=== PATIENT | male | born 1935 | race Caucasian/White ===

== ENCOUNTER 2016-05-31 04:12 | Emergency (ER) | payer MEDICARE, OTHER ==
[~2016-05-31] VITALS: Ht 165.1 cm; Wt 68.0 kg
--- NOTE | 2016-05-31 04:12 | NUR ---
PT BIB RA WITH A C/O SOB. PT REC'D A BREATHING TX IN THE FIELD. PT IS SPEAKING IN COMPLETE SENTENCES. 20G IV IN LEFT HAND IT ANALYST. IV FLUSHING WELL.
[2016-05-31] MEDS ORDERED: methylPREDNISolone SOD SUCC 125 MG/2ML VIAL ONE (04:19)
[2016-05-31] MEDS ORDERED: ALBUTEROL FS 2.5 MG/3 ML VIAL.NEB ONE (04:23)
[2016-05-31] MEDS ORDERED: IPRATROPIUM NEB FS 0.5 MG/2.5 ML AMPUL.NEB ONE (04:24)
[2016-05-31] MEDS: ALBUTEROL FS 2.5 MG/0.5 ML VIAL.NEB NEB ONE (04:25)
[2016-05-31] MEDS: IPRATROPIUM NEB FS 0.5 MG/2.5 ML AMPUL.NEB NEB ONE (04:25)
[2016-05-31] MEDS: methylPREDNISolone SOD SUCC 125 MG/2ML VIAL IV ONE (04:29)
--- NOTE | 2016-05-31 04:30 | NUR ---
RT AT THE BEDSIDE. PT IS ON A BREATHING TX.
--- NOTE | 2016-05-31 04:43 | NUR ---
BREATHING TX FINISHED.
[2016-05-31] MEDS ORDERED: DEXAMETHASONE SOD PHOSPHATE 10 MG/ML VIAL ONE (04:47)
--- NOTE | 2016-05-31 04:51 | NUR ---
DR. FORDE IS AT THE BEDSIDE SPEAKING TO THE PT.
[2016-05-31] MEDS: DEXAMETHASONE SOD PHOSPHATE 10 MG/ML VIAL IV ONE (04:52)
--- NOTE | 2016-05-31 05:10 | NUR ---
IV removed. Catheter intact and site benign. Pressure and 4x4 applied to site. No bleeding noted.Patient discharged to home in stable condition. Written and verbal after care instructions given. Patient verbalizes understanding of instruction AND RX. PT'S SON ARRIVED AND IS DRIVING PT HOME. VSS.
[2016-05-31 05:34] VITALS: BP 159/89
== END 2016-05-31 05:10 | disposition home or self-care (01) ==
LOC: ER 04:15
DX: J20.9 Acute bronchitis, unspecified (principal); J45.909 Unspecified asthma, uncomplicated; I10 Essential (primary) hypertension
CPT/HCPCS: 71010-TC; A4606; J1100; J2930; Z7610

== ENCOUNTER 2019-03-20 07:42 | Inpatient (IN) | payer MEDICARE, OTHER ==
[~2019-03-20] VITALS: Ht 165.1 cm; Wt 68.0 kg
--- NOTE | 2019-03-20 07:43 | NUR ---
PHOEBE 102 FROM HOME, C/O SOB AND COUGH, 94% ON RA, 100% ON 2LPM VIA NC. Hx OF ASTHMA. TO ER BED 10, HOOKED TO MONITOR, CHANGED TO HOSP GOWN, WARM BLANKET PROVIDED, AWAITING MD PIMENTEL
--- NOTE | 2019-03-20 07:48 | NUR ---
DR NOVAK AT BEDSIDE
[2019-03-20] MEDS ORDERED: IPRATROPIUM NEB FS 0.5 MG/2.5 ML AMPUL.NEB NEB ONE (08:00)
[2019-03-20] MEDS ORDERED: ALBUTEROL FS 2.5 MG/3 ML VIAL.NEB CONTNEB ONE (08:00)
[2019-03-20] MEDS ORDERED: IPRATROPIUM NEB FS 0.5 MG/2.5 ML AMPUL.NEB ONE (08:12)
[2019-03-20] MEDS ORDERED: ALBUTEROL FS 2.5 MG/3 ML VIAL.NEB ONE (08:12)
[2019-03-20 08:16] LABS: BASOPHILS % (AUTO) 0.3 % (0.0-2.0); EOSINOPHILS % (AUTO) 0.2 % (0.0-6.0); HEMATOCRIT 38 % (39-51); HEMOGLOBIN 12.7 g/dL (13.5-17.5); LYMPHOCYTES # (AUTO) 0.7 /CMM (0.8-4.8); LYMPHOCYTES % (AUTO) 8.8 % (20.0-44.0); MEAN CORPUSCULAR HGB CONC 34 g/dl (31.0-36.0); MEAN CORPUSCULAR VOLUME 93 fL (80-96); MONOCYTES # (AUTO) 0.6 /CMM (0.1-1.30); MONOCYTES % (AUTO) 7.5 % (2.0-12.0); NEUTROPHILS # (AUTO) 6.7 /CMM (1.8-8.9); NEUTROPHILS % (AUTO) 83.2 % (43.0-81.0); PLATELET COUNT (AUTO) 277 /CMM (150-450); RED BLOOD CELL COUNT(AUTO) 4.06 MIL/uL (4.5-6.0); WHITE BLOOD COUNT (AUTO) 8.1 K/uL (4.3-11.0)
[2019-03-20 08:24] LABS: CALCIUM, SERUM 8.9 mg/dL (8.5-10.1); POTASSIUM 4.2 mmol/L (3.5-5.1)
--- NOTE | 2019-03-20 08:24 | NUR ---
ONGOING BREATHING TX
--- NOTE | 2019-03-20 08:30 | NUR ---
CALLED NURSING SUP FOR TELE BED.
[2019-03-20 08:36] LABS: ALBUMIN 3.2 g/dL (3.4-5.0); BILIRUBIN,DIRECT 0.2 mg/dL (0.0-0.2); BILIRUBIN,TOTAL 0.9 mg/dL (0.2-1.0)
[2019-03-20] MEDS ORDERED: ASPIRIN 81 MG TAB.CHEW PO ONE (09:00)
[2019-03-20] MEDS ORDERED: FUROSEMIDE 40 MG/4 ML VIAL IV ONE (09:00)
[2019-03-20] MEDS ORDERED: FUROSEMIDE 40 MG/4 ML VIAL ONE (09:05)
[2019-03-20] MEDS ORDERED: ASPIRIN 81 MG TAB.CHEW ONE (09:06)
[2019-03-20] MEDS ORDERED: TRAZ-252 PO (09:16)
[2019-03-20] MEDS ORDERED: BUSP10TA35 PO (09:16)
[2019-03-20] MEDS ORDERED: DIGO125T PO (09:16)
[2019-03-20] MEDS ORDERED: ASPI-1152 PO (09:16)
[2019-03-20] MEDS ORDERED: LOSA50TA39 PO (09:16)
[2019-03-20] MEDS ORDERED: CHOL200059 PO (09:16)
[2019-03-20] MEDS ORDERED: TAMS-12 PO (09:16)
[2019-03-20] MEDS ORDERED: ARIP2TAB19 PO (09:16)
[2019-03-20] MEDS ORDERED: ESOM40CA52 PO (09:16)
[2019-03-20] MEDS ORDERED: FLUT1BLS IH (09:16)
[2019-03-20] MEDS ORDERED: ATOR10TA PO (09:16)
[2019-03-20] MEDS ORDERED: HYDR12.55 PO (09:16)
[2019-03-20] MEDS ORDERED: MEMA10TA56 PO (09:16)
[2019-03-20] MEDS ORDERED: MONT10TA22 PO (09:16)
[2019-03-20] MEDS ORDERED: ISOS30TA6 PO (09:16)
[2019-03-20] MEDS ORDERED: MECL-159 PO (09:16)
--- NOTE | 2019-03-20 09:20 | NUR ---
NURSING SUP GAVE TELE BED 327-2.
[2019-03-20] MEDS ORDERED: Z GUARD REMEDY 2 OZ OINT TP PRN (09:30)
[2019-03-20] MEDS ORDERED: IPRATROPIUM NEB FS 0.5 MG/2.5 ML AMPUL.NEB NEB PRN (09:30)
[2019-03-20] MEDS ORDERED: MAG HYDROX/AL HYDROX/SIMETH 30 ML UDC PO PRN (09:30)
[2019-03-20] MEDS ORDERED: HYDROCODONE/APAP 5/325MG 1 EACH TABLET PO PRN (09:30)
[2019-03-20] MEDS ORDERED: ONDANSETRON HCL/PF 4 MG/2 ML VIAL IVP PRN (09:30)
[2019-03-20] MEDS ORDERED: NITROGLYCERIN 0.4 MG/TAB BOTTLE SL ONE (09:30)
[2019-03-20] MEDS ORDERED: MORPHINE SULFATE INJ 2 MG/ML DISP.SYRIN IV PRN (09:30)
[2019-03-20] MEDS ORDERED: ACETAMINOPHEN 325 MG TABLET PO PRN (09:30)
[2019-03-20] MEDS ORDERED: ALBUTEROL FS 2.5 MG/0.5 ML VIAL.NEB NEB PRN (09:30)
--- NOTE | 2019-03-20 09:45 | NUR ---
REPORT GIVEN TO TAMI OF TELE UNIT
[2019-03-20 10:00] VITALS: BP 134/80
[2019-03-20] MEDS ORDERED: MECLIZINE HCL 25 MG TABLET PO PRN (10:00)
[2019-03-20] MEDS ORDERED: TRAZODONE 50 MG TABLET PO PRN (10:00)
--- NOTE | 2019-03-20 10:00 | NUR ---
EMPLOYER RELATIONS REPRESENTATIVEDIRECTOR PRESALES NOTE PATIENT ARRIVED BY JESSICA. PATIENT IS AMBULATORY TO BED. PATIENT IN NO ACUTE DISTRESS. NO SOB NOTED. PATIENT BREATHING IS EVEN AND UNLABORED. PATIENT BREATHING ON OXYGEN NC AT 2L. PATIENT ON CARDIAC MONITORING READING SINUS RHYTHM HR 88. PATIENT VITAL SIGNS WNL. PATIENT BED IS LOCKED AND IN LOWEST POSITION. CALL LIGHT WITHIN REACH. YUE ARGUELLO MADE AWARE OF PATIENT ARRIVAL. WILL CONTINUE TO MONITOR.
[2019-03-20] MEDS: CARVEDILOL 3.125 MG TABLET PO SCH ×2 (10:32→21:04)
[2019-03-20] MEDS: ENOXAPARIN SODIUM 60 MG/0.6 ML DISP.SYRIN SQ SCH ×2 (10:32→21:03)
[2019-03-20] MEDS: FUROSEMIDE 40 MG/4 ML VIAL IV SCH ×3 (10:33→17:27)
--- NOTE | 2019-03-20 12:05 | NUR ---
WASTE TRANSPORTATION TECHNICIAN NOTE TROPONIN LEVEL REPORTED BY LAB WAS 0.735. REPORTED RESULTS TO YUE ARGUELLO. YUE MADE AWARE. NO NEW ORDERS AT THIS TIME. PATIENT IN NO ACUTE DISTRESS. WILL CONTINUE TO MONITOR.
[2019-03-20] MEDS: DIGOXIN 0.125 MG TABLET PO SCH (12:19)
[2019-03-20] MEDS: FLUTICASONE/VILANTEROL 1 EACH BLST.W.DEV IH SCH (12:19)
[2019-03-20 16:00] VITALS: BP 126/76
[2019-03-20] MEDS ORDERED: FLUTICASONE/VILANTEROL 1 EACH BLST.W.DEV IH SCH ×2 (17:00)
[2019-03-20] MEDS: MONTELUKAST SODIUM (10MG) 10 MG TABLET PO SCH (17:28)
[2019-03-20] MEDS: ATORVASTATIN 10 MG TABLET PO SCH (17:28)
[2019-03-20] MEDS: TAMSULOSIN 0.4 MG CAP.SR.24H PO SCH (17:28)
--- NOTE | 2019-03-20 17:57 | NUR ---
ACTUARIAL ASSOCIATE NOTES CALL FROM LAB REGARDING PATIENT TROPONIN LAB REPORTED AT 0.921. REPORTED RESULTS TO YUE ARGUELLO. NO NEW ORDERS AT THIS TIME. WILL CONTINUE TO MONITOR.
--- NOTE | 2019-03-20 18:29 | NUR ---
ARMOR OFFICER CLOSING NOTE PATIENT IN BED RESTING COMFORTABLY. PATIENT IN NO ACUTE DISTRESS. NO SOB NOTED. PATIENT BREATHING IS EVEN AND UNLABORED. PATIENT ON CARDIAC MONITORING READING SINUS RHYTHM HR 64. PATIENT STATES NO PAIN AT THIS TIME. PATIENT KEPT CLEAN, DRY AND COMFORTABLE THROUGHOUT SHIFT. PATIENT BED IS LOCKED AND IN LOWEST POSITION. SAFETY PRECAUTIONS IN PLACE. CALL LIGHT WITHIN REACH. WILL ENDORSE CARE TO PM SHIFT FOR VANESSA.
[2019-03-20 20:00] VITALS: BP 132/98
--- NOTE | 2019-03-20 20:12 | NUR ---
Recievd alert and orientated smiling. Ambulating in the hallway. Noted he is [place]. Offered snack but states he has food at the bedside. moving all extremities
[2019-03-20 20:42] VITALS: BP 139/98
[2019-03-21] VITALS: BP 139/57
[2019-03-21] MEDS: ZOLPIDEM TARTRATE 5 MG TABLET PO PRN ×2 (00:03→23:37)
[2019-03-21 04:00] VITALS: BP_SYST 135; BP_SYST 139; BP_DIAS 57; BP_DIAS 67
--- NOTE | 2019-03-21 06:42 | NUR ---
Ending Notes: ambulated the hallway freq. before settling for sleep. He commented he can't go to sleeo. glenna Dugan given as ordered for insomnia and effective. On the tele monitor SR with occ. HILLS. no c/o pain, gait steady, no SOB, resp given.
[2019-03-21 07:31] LABS: BASOPHILS % (AUTO) 0.3 % (0.0-2.0); EOSINOPHILS % (AUTO) 0.7 % (0.0-6.0); HEMATOCRIT 39 % (39-51); LYMPHOCYTES # (AUTO) 0.9 /CMM (0.8-4.8); LYMPHOCYTES % (AUTO) 12.7 % (20.0-44.0); MEAN CORPUSCULAR HGB CONC 34 g/dl (31.0-36.0); MEAN CORPUSCULAR VOLUME 91 fL (80-96); MONOCYTES # (AUTO) 0.7 /CMM (0.1-1.30); MONOCYTES % (AUTO) 9.7 % (2.0-12.0); NEUTROPHILS # (AUTO) 5.3 /CMM (1.8-8.9); NEUTROPHILS % (AUTO) 76.6 % (43.0-81.0); PLATELET COUNT (AUTO) 277 /CMM (150-450); RED BLOOD CELL COUNT(AUTO) 4.27 MIL/uL (4.5-6.0); WHITE BLOOD COUNT (AUTO) 6.9 K/uL (4.3-11.0)
[2019-03-21 07:53] LABS: CALCIUM, SERUM 8.8 mg/dL (8.5-10.1); CREATININE 1.1 mg/dL (0.6-1.3); PHOSPHORUS 3.5 mg/dL (2.5-4.9); POTASSIUM 3.5 mmol/L (3.5-5.1)
[2019-03-21 08:00] VITALS: BP 133/65
[2019-03-21 08:35] LABS: THYROID STIMULATING HORMONE 1.353 uIU/mL (0.358-3.74)
--- NOTE | 2019-03-21 08:54 | NUR ---
TELE/RN NOTE DR COATS IS AWARE OF TROPONIN LEVEL OF 0.578 AND NO NEW ORDERS PER MD.
[2019-03-21] MEDS ORDERED: ASPIRIN 325 MG TABLET PO SCH (09:00)
[2019-03-21] MEDS ORDERED: busPIRone HCL 10 MG TABLET PO SCH (09:00)
[2019-03-21] MEDS: PANTOPRAZOLE 40 MG TABLET.DR PO SCH (09:04)
[2019-03-21] MEDS: ARIPIPRAZOLE 2 MG TABLET PO SCH (09:04)
[2019-03-21] MEDS: ISOSORBIDE MONONITRATE (30MG) 30 MG TAB.SR.24H PO SCH (09:05)
[2019-03-21] MEDS: CHOLECALCIFEROL 1,000 UNIT TABLET (VIT D3) PO SCH (09:05)
[2019-03-21] MEDS: MEMANTINE HCL 5 MG TABLET PO SCH (09:06)
[2019-03-21] MEDS: busPIRone 5 MG TABLET PO SCH (09:06)
[2019-03-21] MEDS: ASPIRIN EC 81 MG TABLET.DR PO SCH (09:06)
[2019-03-21] MEDS: LOSARTAN POTASSIUM 50 MG TABLET PO SCH (09:07)
[2019-03-21] MEDS: CARVEDILOL 3.125 MG TABLET PO SCH ×2 (09:07→21:11)
[2019-03-21] MEDS: HYDROCHLOROTHIAZIDE 25 MG TABLET PO SCH (09:07)
[2019-03-21] MEDS: FLUTICASONE/VILANTEROL 1 EACH BLST.W.DEV IH SCH (09:14)
[2019-03-21] MEDS: ENOXAPARIN SODIUM 60 MG/0.6 ML DISP.SYRIN SQ SCH ×2 (09:15→21:00)
--- NOTE | 2019-03-21 11:02 | NUR ---
TELE/RN NOTE DR ARGUELLO IS AWARE OF TROPONIN LEVEL OF 0.578 AND NO NEW ORDERS PER MD.
[2019-03-21] MEDS: DIGOXIN 0.125 MG TABLET PO SCH (12:47)
[2019-03-21 16:00] VITALS: BP 116/68
[2019-03-21] MEDS: MONTELUKAST SODIUM (10MG) 10 MG TABLET PO SCH (17:56)
[2019-03-21] MEDS: TAMSULOSIN 0.4 MG CAP.SR.24H PO SCH (18:00)
[2019-03-21] MEDS: ATORVASTATIN 10 MG TABLET PO SCH (18:00)
--- NOTE | 2019-03-21 18:49 | NUR ---
MS/RN NOTE THE PATIENT IS ALERT AND ORIENTED X4. DENIES PAIN. RECEIVING OXYGEN AT 3L/MIN VIA NASAL CANNULA AND SATURATION IS AT 96%. DENIES SOB. RESPIRATION REGULAR AND UNLABORED. THE PATIENT IN NO APPARENT DISTRESS. LAC G 20 PATENT AND SALINE LOCKED. BED LOW AND LOCKED. SIDE RAILS UP X2. CALL LIGHT WITHIN REACH. WILL ENDORSE TO FLYING INSTRUCTOR.
--- NOTE | 2019-03-21 19:30 | NUR ---
MS RN OPENING NOTES PATIENT SLEEPING IN BED, EASY TO AWAKEN. A/OX4. ON 3L NC. PATIENT DENIES SOB AND PAIN AT THIS TIME. IV PRESENT ON LEFT AC, SIZE 20, INTACT & PATENT, HEP LOCKED. BED LOCKED, SIDE RAILS X2, CALL LIGHT WITHIN REACH. WILL CONTINUE TO MONITOR.
[2019-03-21 20:00] VITALS: BP_SYST 110; BP_SYST 120; BP_DIAS 62; BP_DIAS 65
--- NOTE | 2019-03-21 23:11 | NUR ---
MS RN NOTES PATIENT COMPLAINING OF INSOMNIA. PER PATIENT'S REQUEST, ADMINISTERED PRN AMBIEN 5MG. VITAL SIGNS- BP: 127/71 HR: 65 RR: 20 SPO2: 97 ON 3L NC. BED LOCKED, ALARM ON, SIDE RAILS X2, CALL LIGHT WITHIN REACH. WILL CONTINUE TO MONITOR.
[2019-03-22 06:38] LABS: CALCIUM, SERUM 8.8 mg/dL (8.5-10.1); CREATININE 1.1 mg/dL (0.6-1.3); POTASSIUM 3.6 mmol/L (3.5-5.1)
[2019-03-22 06:43] LABS: BASOPHILS % (AUTO) 0.2 % (0.0-2.0); EOSINOPHILS % (AUTO) 0.7 % (0.0-6.0); HEMATOCRIT 38 % (39-51); HEMOGLOBIN 12.7 g/dL (13.5-17.5); LYMPHOCYTES % (AUTO) 14.9 % (20.0-44.0); MEAN CORPUSCULAR HGB CONC 33 g/dl (31.0-36.0); MEAN CORPUSCULAR VOLUME 92 fL (80-96); MONOCYTES # (AUTO) 0.7 /CMM (0.1-1.30); MONOCYTES % (AUTO) 10.6 % (2.0-12.0); NEUTROPHILS # (AUTO) 5.1 /CMM (1.8-8.9); NEUTROPHILS % (AUTO) 73.6 % (43.0-81.0); PLATELET COUNT (AUTO) 274 /CMM (150-450); RED BLOOD CELL COUNT(AUTO) 4.14 MIL/uL (4.5-6.0); WHITE BLOOD COUNT (AUTO) 6.9 K/uL (4.3-11.0)
--- NOTE | 2019-03-22 07:40 | NUR ---
MS RN CLOSING NOTES PATIENT AWAKE IN BED. A/O X4. ON 3L NC. NO COMPLAINTS OF SOB OR PAIN AT THIS TIME. IV PRESENT ON LEFT AC, SIZE 20, INTACT & PATENT, HEP LOCKED. BED LOCKED, SIDE RAILS X2, SEMI-COTTO'S POSITION, CALL LIGHT WITHIN REACH. WILL ENDORSE TO DAY SHIFT NURSE TO FOLLOW PLAN OF CARE.
[2019-03-22 08:00] VITALS: BP 129/72
--- NOTE | 2019-03-22 08:00 | NUR ---
MS/RN OPENING NOTES RECEIVED PATIENT AWAKE IN BED. A/O X4. ON 3L NC. NO COMPLAINTS OF SOB OR PAIN AT THIS TIME. IV PRESENT ON LEFT AC, SIZE 20, INTACT & PATENT, HEP LOCKED. BED LOCKED, SIDE RAILS X2, SEMI-COTTO'S POSITION, CALL LIGHT WITHIN REACH. WILL CONTINUE TO MONITOR.
[2019-03-22] MEDS: LOSARTAN POTASSIUM 50 MG TABLET PO SCH (08:17)
[2019-03-22] MEDS: CARVEDILOL 3.125 MG TABLET PO SCH ×2 (08:17→20:04)
[2019-03-22] MEDS: ISOSORBIDE MONONITRATE (30MG) 30 MG TAB.SR.24H PO SCH (08:18)
[2019-03-22] MEDS: ENOXAPARIN SODIUM 60 MG/0.6 ML DISP.SYRIN SQ SCH ×2 (08:39→20:04)
[2019-03-22] MEDS: FLUTICASONE/VILANTEROL 1 EACH BLST.W.DEV IH SCH (08:41)
[2019-03-22] MEDS: MEMANTINE HCL 5 MG TABLET PO SCH (08:43)
[2019-03-22] MEDS: HYDROCHLOROTHIAZIDE 25 MG TABLET PO SCH (08:43)
[2019-03-22] MEDS: busPIRone 5 MG TABLET PO SCH (08:44)
[2019-03-22] MEDS: POTASSIUM CHLORIDE 20 MEQ TAB.PRT.SR PO SCH (09:00)
[2019-03-22] MEDS ORDERED: FUROSEMIDE 40 MG TABLET PO SCH (09:00)
--- NOTE | 2019-03-22 09:50 | NUR ---
MS/RN NOTES PATIENT IS OUT IN THE UNIT FOR CT ANGIOGRAM OF HEART. CLASSIFICATION CASE MANAGER BY FEATHER WASHER.
[2019-03-22] MEDS ORDERED: IOHEXOL-350 100 ML VIAL IV ONE (09:57)
[2019-03-22] MEDS ORDERED: IV NS 0.9% 250 ML IV ONE (09:57)
[2019-03-22] MEDS ORDERED: NITROGLYCERIN 0.4 MG/TAB BOTTLE SL ONE ×2 (10:00→10:30)
[2019-03-22] MEDS ORDERED: METOPROLOL TARTRATE INJ 5 MG/5 ML AMPUL IVP PRN (10:00)
[2019-03-22] MEDS ORDERED: IV NS 0.9% 500 ML IV PRN (10:00)
[2019-03-22] MEDS ORDERED: NITROGLYCERIN 0.4 MG/TAB BOTTLE ONE (10:23)
[2019-03-22] MEDS: CHOLECALCIFEROL 1,000 UNIT TABLET (VIT D3) PO SCH (10:49)
[2019-03-22] MEDS: ASPIRIN EC 81 MG TABLET.DR PO SCH (10:50)
[2019-03-22] MEDS: PANTOPRAZOLE 40 MG TABLET.DR PO SCH (10:50)
[2019-03-22] MEDS: ARIPIPRAZOLE 2 MG TABLET PO SCH (10:50)
[2019-03-22 16:00] VITALS: BP 111/70
[2019-03-22] MEDS: ATORVASTATIN 40 MG TABLET PO SCH (18:01)
[2019-03-22] MEDS: TAMSULOSIN 0.4 MG CAP.SR.24H PO SCH (18:01)
[2019-03-22] MEDS: MONTELUKAST SODIUM (10MG) 10 MG TABLET PO SCH (18:01)
--- NOTE | 2019-03-22 18:50 | NUR ---
MS/RN CLOSING NOTES PATIENT AWAKE IN BED. A/O X4. ON 3L NC. NO COMPLAINTS OF SOB OR PAIN AT THIS TIME. IV PRESENT ON LEFT AC, SIZE 20 AND RIGHT AC 18 GAUGE. INTACT & PATENT, HEP LOCKED. SEEN AND EXAMINED BY MD WITH ORDERS NOTED AND CARRIED OUT. KEPT PATIENT CLEAN AND DRY. BED LOCKED, SIDE RAILS X2, SEMI-COTTO'S POSITION, CALL LIGHT WITHIN REACH. WILL ENDORSED TO DAM ATTENDANT.
--- NOTE | 2019-03-22 19:23 | NUR ---
MS RN OPENING NOTES PATIENT AWAKE AND RESTING IN BED COMFORTABLY; A/O X4; PATIENT ON 3L NC; TOLERATING WELL; NO S/S OF ACUTE RESPIRATORY DISTRESS NOTED; BREATHING EVEN AND UNLABORED; PATIENT DENIES PAIN; PATIENT REPORTS TO BE DOING WELL; L AC #20 SL, FLUSHING WELL; NO S/S OF REDNESS OR INFILTRATION; R AC # 18 SL; FLUSHING WELL, NO S/S OF REDNESS OR INFILTRATION; BOTH SITES INTACT AND PATENT; SAFETY PRECAUTIONS IN PLACE; BED LOCKED IN LOW POSITION; BILATERAL UPPER SIDE RAILS X2; CALL LIGHT WITHIN REACH; WILL CONTINUE TO MONITOR.
[2019-03-22 20:00] VITALS: BP_SYST 106; BP_SYST 115; BP_DIAS 72
[2019-03-22] MEDS: ZOLPIDEM TARTRATE 5 MG TABLET PO PRN (22:16)
[2019-03-23] VITALS (26 sets, daily range): BP systolic 90–136; BP diastolic 40–103
[2019-03-23] MEDS ORDERED: IV NS 0.9% 50 ML IV ONE (06:17)
[2019-03-23] MEDS ORDERED: IV NS 0.9% 1,000 ML ONE (06:17)
[2019-03-23] MEDS ORDERED: HEPARIN SODIUM, PORCINE 1,000 UNIT/ML VIAL ONE (06:18)
[2019-03-23] MEDS ORDERED: IV SET PRIMARY PUMP SET 1 EA INFUS.SET MC ONE (06:19)
[2019-03-23] MEDS ORDERED: NITROGLYCERIN ICAR 1,000 MCG/10 ML VIAL ICAR ONE (06:19)
[2019-03-23] MEDS ORDERED: VERAPAMIL HCL IV 5 MG/2 ML VIAL ONE (06:19)
[2019-03-23] MEDS ORDERED: IODIXANOL 150 ML IV ONE (06:26)
--- NOTE | 2019-03-23 06:39 | NUR ---
MS RN CLOSING NOTES PATIENT AWAKE, A/O X4; PATIENT ON 3L NC, TOLERATING WELL; NO S/S OF ACUTE RESPIRATORY DISTRESS NOTED; BREATHING EVEN AND UNLABORED; L AC # 20 SL AND R AC #18 SL, BOTH INTACT AND PATENT; FLUSHING WELL; NO S/S OF REDNESS OR INFILTRATION NOTED; NPO STATUS MAINTAINED; AWAITING PULP OPERATOR TO WHEEL PATIENT FOR CARDIAC CATHETERIZATION; SAFETY PRECAUTIONS IN PLACE; BED LOCKED IN LOW POSITION; BILATERAL SIDE RAILS X2; CALL LIGHT WITHIN REACH; WILL ENDORSE CONTINUITY OF CARE TO ONCOMING SHIFT.
--- NOTE | 2019-03-23 06:53 | NUR ---
MS RN NOTES PATIENT ACCOMPANIED BY FRESH [employer]ODS CAKE DECORATOR STAFF FOR PROCEDURE; WILL ENDORSE CONTINUITY OF CARE TO ONCOMING SHIFT.
[2019-03-23 07:06] LABS: BASOPHILS % (AUTO) 0.6 % (0.0-2.0); HEMATOCRIT 39 % (39-51); HEMOGLOBIN 12.9 g/dL (13.5-17.5); LYMPHOCYTES # (AUTO) 0.8 /CMM (0.8-4.8); LYMPHOCYTES % (AUTO) 12.9 % (20.0-44.0); MEAN CORPUSCULAR HGB CONC 33 g/dl (31.0-36.0); MEAN CORPUSCULAR VOLUME 92 fL (80-96); MONOCYTES # (AUTO) 0.7 /CMM (0.1-1.30); MONOCYTES % (AUTO) 10.9 % (2.0-12.0); NEUTROPHILS # (AUTO) 4.9 /CMM (1.8-8.9); NEUTROPHILS % (AUTO) 74.6 % (43.0-81.0); PLATELET COUNT (AUTO) 260 /CMM (150-450); RED BLOOD CELL COUNT(AUTO) 4.22 MIL/uL (4.5-6.0); WHITE BLOOD COUNT (AUTO) 6.5 K/uL (4.3-11.0)
[2019-03-23] MEDS ORDERED: MIDAZOLAM HCL 2 MG/2ML VIAL ONE (07:08)
[2019-03-23] MEDS ORDERED: FENTANYL PF 100MCG/2ML AMPUL ONE (07:08)
[2019-03-23] MEDS ORDERED: LIDOCAINE HCL/PF 1% 30 ML SDV ONE (07:08)
[2019-03-23 07:22] LABS: CALCIUM, SERUM 8.7 mg/dL (8.5-10.1); CREATININE 1.1 mg/dL (0.6-1.3); POTASSIUM 3.6 mmol/L (3.5-5.1)
[2019-03-23] MEDS ORDERED: ATROPINE SULFATE 1 MG/10 ML DISP.SYRIN ONE (07:28)
--- NOTE | 2019-03-23 07:29 | NUR ---
MS/RN OPENING NOTES RECEIVED REPORT FROM WEARING APPAREL SHAKER RN, PATIENT IS OUT IN THE UNIT FOR CARDIAC CATH.
[2019-03-23] MEDS: PANTOPRAZOLE 40 MG TABLET.DR PO SCH (07:30)
--- NOTE | 2019-03-23 08:00 | NUR ---
MS/RN NOTES INITIATED STRAIGHT CATHETER AGAIN, PATIENT IS STILL HEATING AND AGGRESSIVE.
--- NOTE | 2019-03-23 08:40 | NUR ---
FOOT PRESS OPERATOR PT RECEIVED FROM BRICK UNLOADER TENDER BY JESSICA WITH MONITOR. PT AWAKE AND ALERT. FOLLOWS COMMANDS. TR BAND IN PLACE ON LEFT ARM OVER RADIAL ARTERY. DISTAL PULSE STRONG.
[2019-03-23] MEDS: ARIPIPRAZOLE 2 MG TABLET PO SCH (09:00)
--- NOTE | 2019-03-23 09:12 | NUR ---
MS/RN NOTES PATIENT IS IN ICU PER RN, BROUGHT THE BELONGINGS TO ICU ENDORSED TO ICU NURSE. BLACK PAIR SHOES, LONG SLEEVE SHIRT, CHRISTINA PANTS WITH BELT, WATER BOTTLE, DENTURES AND BREAD.
[2019-03-23] MEDS: ASPIRIN EC 81 MG TABLET.DR PO SCH (10:33)
[2019-03-23] MEDS: CHOLECALCIFEROL 1,000 UNIT TABLET (VIT D3) PO SCH (10:33)
[2019-03-23] MEDS: MEMANTINE HCL 5 MG TABLET PO SCH (10:34)
[2019-03-23] MEDS: busPIRone 5 MG TABLET PO SCH (10:34)
[2019-03-23] MEDS: POTASSIUM CHLORIDE 20 MEQ TAB.PRT.SR PO SCH (10:34)
[2019-03-23] MEDS: HYDROCHLOROTHIAZIDE 25 MG TABLET PO SCH (10:35)
[2019-03-23] MEDS: ISOSORBIDE MONONITRATE (30MG) 30 MG TAB.SR.24H PO SCH (10:35)
[2019-03-23] MEDS: CARVEDILOL 3.125 MG TABLET PO SCH ×2 (11:30→21:00)
[2019-03-23] MEDS: LOSARTAN POTASSIUM 50 MG TABLET PO SCH (11:30)
[2019-03-23] MEDS: FLUTICASONE/VILANTEROL 1 EACH BLST.W.DEV IH SCH (11:35)
--- NOTE | 2019-03-23 14:00 | NUR ---
RN NOTE: Assumed care for this patient and report was received from KAYLA Mcgowan CN.
[2019-03-23] MEDS: DOCUSATE SODIUM 100 MG CAPSULE PO SCH (17:31)
[2019-03-23] MEDS: ATORVASTATIN 40 MG TABLET PO SCH (17:32)
[2019-03-23] MEDS: MONTELUKAST SODIUM (10MG) 10 MG TABLET PO SCH (17:32)
[2019-03-23] MEDS: TAMSULOSIN 0.4 MG CAP.SR.24H PO SCH (17:32)
[2019-03-23] MEDS: SENNOSIDES/DOCUSATE SODIUM 1 TAB TABLET PO SCH (17:34)
--- NOTE | 2019-03-23 18:09 | NUR ---
RN NOTE: Called and spoke with Sid upper caser and asked regarding the update for the patient's transfer to a higher level of care for a CABG. As per BENJAMIN Lau the inquiries were sent to [facility] and [facility] were started today. Pending transfer at this time. MALIK Mcgowan made aware.
--- NOTE | 2019-03-23 19:28 | NUR ---
RN NOTE: Bedside report was given to KAYLA Lopez for continuity of care. Patient remained awake, alert and verbally responsive. Awaiting for transfer to a higher level of care for CABG.
--- NOTE | 2019-03-23 19:30 | NUR ---
RN NOTES, PATIENT AWAKE, A/O X4, SITTING ON THE CHAIR, BREATHING EVEN AND UNLABORED, ON 3LPMM VIA NC WITH 02 SAT 98% AT THIS TIME,TOLERATING WELL, NO SOB/ACUTE DISTRESS NOTED AT THIS TIME, LEFT AC # 20 SL AND R AC #18 SL, BOTH INTACT AND PATENT, S/P CARDIAC CATH, PATIENT DENIES ANY PAIN OR DISCOMFORT, SAFETY PRECAUTIONS IN PLACE, BED LOCKED IN LOWEST POSITION, BILATERAL BED SIDE RAILS X2, CALL LIGHT WITHIN REACH, WILL CONTINUE TO MONITOR CLOSELY.
--- NOTE | 2019-03-23 20:17 | NUR ---
RN NOTES, PATIENT ASKING TO USED RESTROOM, AND COMMODE PROVIDED FOR COMFORT AND CONTINUE MONITORING, HE REFUSED TO USE COMMODE, EDUCATION PROVIDED ABOUT THE CONVENIENCE AND IMPORTANCE OF USE COMMODE INSTEAD OF GOING TO RESTROOM AND HE STILL REFUSED, CALLED MD SKY INSIDE SALES SUPERVISOR AND HE REPLIED WITH ORDER FOR BATHROOM PRIVILEGES, NOTED AND CARRIED OUT.
[2019-03-23] MEDS: ZOLPIDEM TARTRATE 5 MG TABLET PO PRN (22:59)
[2019-03-24] VITALS (19 sets, daily range): BP systolic 100–118; BP diastolic 52–67
--- NOTE | 2019-03-24 06:39 | NUR ---
RN CLOSING NOTES, PATIENT AWAKE, A/O X4, PATIENT ON 2L NC, TOLERATING WELL; NO S/S OF ACUTE RESPIRATORY DISTRESS NOTED; BREATHING EVEN AND UNLABORED; L AC # 20 SL AND R AC #18 SL, BOTH INTACT AND PATENT; FLUSHING WELL; NO S/S OF REDNESS OR INFILTRATION NOTED; NPO STATUS MAINTAINED; AWAITING DIRECTOR OF PEDIATRIC REHABILITATION TO WHEEL PATIENT FOR CARDIAC CATHETERIZATION; SAFETY PRECAUTIONS IN PLACE; BED LOCKED IN LOW POSITION; BILATERAL SIDE RAILS X2; CALL LIGHT WITHIN REACH; WILL ENDORSE CONTINUITY OF CARE TO ONCOMING SHIFT Addendum: 03/24/19 at 0640 by SOPHIA HILLS RN WRONG ENTRY
--- NOTE | 2019-03-24 06:40 | NUR ---
RN NOTES, PATIENT AWAKE, A/O X4, AWAKE ASLEEP BUT EASILY AROUSES TO VERBAL STIMULI, BREATHING EVEN AND UNLABORED, ON 2LPM VIA NC WITH 02 SAT 98% AT THIS TIME,TOLERATING WELL, NO SOB/ACUTE DISTRESS NOTED AT THIS TIME, NO SIGNIFICANT CHANGE IN CONDITION DURING THE NIGHT, WITH STABLE VITAL SINGS, BED LOCKED IN LOWEST POSITION, BILATERAL BED SIDE RAILS X2, CALL LIGHT WITHIN REACH, WILL ENDORSE CONTINUITY OF CARE TO ONCOMING NURSE.
--- NOTE | 2019-03-24 07:30 | NUR ---
MOLD CAR PUSHER INITIAL NOTE RECEIVED PATIENT AWAKE ALERT AND ORIENTED, SITTING IN CHAIR. DENIES CHEST PAIN, DENIES SOB. ON 2LPMO2 VIA NC. SKIN WARM AND DRY TO TOUCH. ON TELE MONITOR SR. PERIPHERAL IVS PATENT AND INTACT. CALL LIGHT KEPT WITHIN EASY REACH. WILL CONTINUE TO MONITOR.
--- NOTE | 2019-03-24 08:24 | NUR ---
HUMANITIES TEACHER NOTE PATIENT TO BE TRANSFERRED TO ROOM 203, SON AND PATIENT INFORMED.
[2019-03-24] MEDS: CHOLECALCIFEROL 1,000 UNIT TABLET (VIT D3) PO SCH (08:48)
[2019-03-24] MEDS: LOSARTAN POTASSIUM 50 MG TABLET PO SCH (08:49)
[2019-03-24] MEDS: HYDROCHLOROTHIAZIDE 25 MG TABLET PO SCH (08:49)
[2019-03-24] MEDS: DOCUSATE SODIUM 100 MG CAPSULE PO SCH ×2 (08:49→16:42)
[2019-03-24] MEDS: ISOSORBIDE MONONITRATE (30MG) 30 MG TAB.SR.24H PO SCH (08:49)
[2019-03-24] MEDS: SENNOSIDES/DOCUSATE SODIUM 1 TAB TABLET PO SCH (08:49)
[2019-03-24] MEDS: ARIPIPRAZOLE 2 MG TABLET PO SCH (08:50)
[2019-03-24] MEDS: POTASSIUM CHLORIDE 20 MEQ TAB.PRT.SR PO SCH (08:50)
[2019-03-24] MEDS: CARVEDILOL 3.125 MG TABLET PO SCH ×2 (08:50→21:00)
[2019-03-24] MEDS: busPIRone 5 MG TABLET PO SCH (08:50)
[2019-03-24] MEDS: ASPIRIN EC 81 MG TABLET.DR PO SCH (08:50)
[2019-03-24] MEDS: MEMANTINE HCL 5 MG TABLET PO SCH (08:51)
[2019-03-24] MEDS: FLUTICASONE/VILANTEROL 1 EACH BLST.W.DEV IH SCH (08:51)
[2019-03-24] MEDS: PANTOPRAZOLE 40 MG TABLET.DR PO SCH (08:51)
--- NOTE | 2019-03-24 08:52 | NUR ---
CIVIL ENGINEERING DESIGN DRAFTSPERSON NOTE REPORT GIVEN TO MED SURG NURSE JARRETT
--- NOTE | 2019-03-24 09:12 | NUR ---
ENVIRONMENTAL LAWYER NOTE PATIENT TRANSFERRED TO ROOM 203 VIA BED IN STABLE CONDITION. ALL BELONGINGS WITH PATIENT, INCLUDING DENTURES.
--- NOTE | 2019-03-24 09:23 | NUR ---
MS RN NOTES PATIENT ARRIVED TO UNIT AT 0905 TRANSFERRED FROM ICU RM 253 TO RM 203. REPORT GIVEN BY KAYLA LÓPEZ. PT IS A/O X4 AND ABLE TO MAKE NEEDS KNOWN. ON 02 VIA N/C AT 2LPM, TOLERATING WELL WITH NO ACUTE RESPIRATORY DISTRESS NOTED. PT ORIENTED TO UNIT AND STAFF. V/S CHECKED: BP 117/52, P 74, R 19, T 97.6F AND SP02 97%. PT WITH PIV'S ON RAC G#200 AND LFA G#18, BOTH INTACT AND PATENT . SAFETY MEASURES IMPLEMENTED: BED PLACED IN LOWEST LOCKED POSITION [facility] SR UP X2. CALL LIGHT WITHIN REACH. WILL CONTINUE TO MONITOR.
[2019-03-24] MEDS: MONTELUKAST SODIUM (10MG) 10 MG TABLET PO SCH (17:12)
[2019-03-24] MEDS: ATORVASTATIN 40 MG TABLET PO SCH (17:12)
[2019-03-24] MEDS: TAMSULOSIN 0.4 MG CAP.SR.24H PO SCH (17:13)
--- NOTE | 2019-03-24 17:50 | NUR ---
RN NOTES SPOKE TO CM KATHY SON AND HE SAID THAT PT WILL BE TRANSFERRED TO [facility] TOMORROW MORNING FOR HIGHER LEVEL OF CARE. PATIENT AND SON INFORMED.
--- NOTE | 2019-03-24 18:40 | NUR ---
MS RN CLOSING NOTES PT IN BED AWAKE WATCHING TV AT THIS TIME. A/O X3-4. ABLE TO MAKE NEEDS KNOWN. ON SUPPLEMENTAL 02 VIA N/C AT 2LPM, TOLERATING WELL WITH NO ACUTE RESPIRATORY DISTRESS NOTED. PIV'S ON RAC G#20 AND LFA G#18 BOTH INTACT, PATENT AND FLUSHES WELL. SAFETY MEASURE KEPT IN PLACE: BE IN LOWEST LOCKED POSITION WITH SR UP X2. CALL LIGHT WITHIN REACH. ALL NEEDS AND CARE ATTENDED WELL. PT FOR TRANSFER TO [facility] TOMORROW MORNING FOR HIGHER LEVEL OF CARE (03/25/2019). WILL ENDORSE TO WARD ATTENDANT NURSE
--- NOTE | 2019-03-24 19:31 | NUR ---
RN MS OPENING NOTES RECEIVED PATIENT IN BED AWAKE, ALERT AND ORIENTED X3, VERBALLY RESPONSIVE, ABLE TO MAKE NEEDS KNOWN. BREATHING EVEN AND UNLABORED. NO SOB, TOLERATING 2LPM NC. DENIES PAIN OR DISCOMFORT. DENIES N/V. IVs INTACT AND PATENT. REQUESTING FOR SLEEPING AID AND MOM TONIGHT - WILL GIVE ACCORDINGLY. ALL OTHER NEEDS ATTENDED TO, SAFETY MEASURES IN PLACE. CALL LIGHT WITHIN REACH. WILL CONTINUE TO MONITOR.
[2019-03-24] MEDS: MAGNESIUM HYDROXIDE 30 ML UDC PO PRN (22:57)
[2019-03-24] MEDS: ZOLPIDEM TARTRATE 5 MG TABLET PO PRN (22:57)
--- NOTE | 2019-03-24 22:59 | NUR ---
KAYLA MS NOTES PATIENT REQUESTED FOR MOM ALONG WITH [facility]. NOW REFUSING MOM AND WANTS IT AT A LATER TIME. ADMINISTRATION UNDONE ON EMAR. Addendum: 03/24/19 at 2357 by JEFF FENG RN MEDICATION RETURNED.
[2019-03-25] MEDS: MAGNESIUM HYDROXIDE 30 ML UDC PO PRN (04:19)
--- NOTE | 2019-03-25 06:53 | NUR ---
RN MS CLOSING NOTES NO ACUTE CHANGES THROUGHOUT SHIFT. BREATHING EVEN AND UNLABORED. NO SOB, TOLERATING 2LPM NC. DENIES PAIN OR DISCOMFORT. DENIES N/V. IVs INTACT AND PATENT. ANTICIPATING TRANSFER TO [facility]. ALL OTHER NEEDS ATTENDED TO, SAFETY MEASURES IN PLACE. CALL LIGHT WITHIN REACH. WILL ENDORSE TO ONCOMING NURSE FOR VANESSA.
--- NOTE | 2019-03-25 07:09 | NUR ---
MS RN OPENING NOTES RECEIVED PT ASLEEP IN BED, EASILY AWAKENS. A/O X3-4. ABLE TO MAKE NEEDS KNOWN. ON 02 VIA N/C AT 2LPM, TOLERATING WELL WITH NO SOB NOTED. PIV'S ON RAC G#20 AND LFA G#18 BOTH INTACT, PATENT AND FLUSHES WELL. SAFETY MEASURE KEPT IN PLACE: BED IN LOWEST LOCKED POSITION WITH SR UP X2. CALL LIGHT WITHIN REACH. PT FOR TRANSFER TO [facility] TODAY FOR HIGHER LEVEL OF CARE. WILL CONTINUE TO MONITOR
[2019-03-25] MEDS: PANTOPRAZOLE 40 MG TABLET.DR PO SCH (07:46)
[2019-03-25 08:00] VITALS: BP 115/56
[2019-03-25] MEDS: busPIRone 5 MG TABLET PO SCH (08:09)
[2019-03-25] MEDS: FLUTICASONE/VILANTEROL 1 EACH BLST.W.DEV IH SCH (08:09)
[2019-03-25] MEDS: MEMANTINE HCL 5 MG TABLET PO SCH (08:09)
[2019-03-25] MEDS: DOCUSATE SODIUM 100 MG CAPSULE PO SCH (08:09)
[2019-03-25] MEDS: CHOLECALCIFEROL 1,000 UNIT TABLET (VIT D3) PO SCH (08:09)
[2019-03-25] MEDS: POTASSIUM CHLORIDE 20 MEQ TAB.PRT.SR PO SCH (08:09)
[2019-03-25] MEDS: SENNOSIDES/DOCUSATE SODIUM 1 TAB TABLET PO SCH (08:09)
[2019-03-25] MEDS: ASPIRIN EC 81 MG TABLET.DR PO SCH (08:09)
[2019-03-25] MEDS: ARIPIPRAZOLE 2 MG TABLET PO SCH (08:09)
[2019-03-25] MEDS: CARVEDILOL 3.125 MG TABLET PO SCH (08:14)
[2019-03-25] MEDS: LOSARTAN POTASSIUM 50 MG TABLET PO SCH (08:14)
[2019-03-25 08:15] VITALS: BP 115/56
[2019-03-25] MEDS: HYDROCHLOROTHIAZIDE 25 MG TABLET PO SCH (08:15)
[2019-03-25] MEDS: ISOSORBIDE MONONITRATE (30MG) 30 MG TAB.SR.24H PO SCH (08:15)
--- NOTE | 2019-03-25 09:33 | NUR ---
RN NOTES PT FO RTRANSFER TO [facility] THIS MORNING FOR HIGHER LEVEL OF CARE. CALLED AND REPORT GIVEN TO KAYLA ESTRELLA OF 3G TELEMETRY UNIT. SHE SAID THAT PT WILL GO TO ROOM [address] ATT[address]ING DR IS DR OLIVAREZ.
--- NOTE | 2019-03-25 11:08 | NUR ---
RN DISCHARGED NOTES PATIENT DISCHARGED TO [facility] FOR HIGHER LEVEL OF CARE. PT IS A/O X4, SAME ABLE TO MAKE NEEDS KNOWN. V/S TAKEN, STABLE AND RECORDED. PHOTOS OF SKIN TAKEN AND FILED ON CHART. PIV'S KEPT IN PLACE. ALL BELONGINGS ACCOUNTED FOR AND SIGNED FORM. DISCHARGED INSTRUCTIONS GIVEN TO PT AND REPORT GIVEN TO KAYLA ESTRELLA OF 3[facility] UNIT. PT LEFT UNIT VIA GURNEY AT 1105 IN NO ACUTE SIGNS OF DISTRESS ACCOMPANIED BY 2 EMT/.S , DR PIKE AWARE OF DISCHARGE.
== END 2019-03-25 11:05 | disposition short-term general hospital (02) | DRG 280 ==
LOC: ER 07:43 → TELE 09:21 → MED 03-21 09:36 → ICU 03-23 08:34 → MEDSG2 03-24 08:55
PROVIDERS: ADMIT Nurse Practitioner Acute Care; ATTEND Internal Medicine
PROC: 4A023N7 Measurement of Cardiac Sampling and Pressure, Left Heart, Percutaneous Approach (ICD-10-PCS; principal; 2019-03-23)
PROC: B211YZZ Fluoroscopy of Multiple Coronary Arteries using Other Contrast (ICD-10-PCS; 2019-03-23)
DX: I21.4 Non-ST elevation (NSTEMI) myocardial infarction (principal); J96.01 Acute respiratory failure with hypoxia; I50.21 Acute systolic (congestive) heart failure; F03.91 Unspecified dementia, unspecified severity, with behavioral disturbance; J44.1 Chronic obstructive pulmonary disease with (acute) exacerbation; I11.0 Hypertensive heart disease with heart failure; E78.5 Hyperlipidemia, unspecified; N40.0 Benign prostatic hyperplasia without lower urinary tract symptoms; G47.00 Insomnia, unspecified; Z91.14 Patient's other noncompliance with medication regimen; F17.210 Nicotine dependence, cigarettes, uncomplicated; I25.5 Ischemic cardiomyopathy; I25.10 Atherosclerotic heart disease of native coronary artery without angina pectoris
CPT/HCPCS: 36415; 71045-TC; 75574; 80048-TC; 80061-TC; 80076-TC; 80162-TC; 83605-TC; 83735-TC; 83880; 84100-TC; 84443-TC; 84484-TC; 85025-TC; 87040-TC; 87081-TC; 93307-TC; 93452; A4216; C1887; G0378; J0461; J1644; J1650; J1940; J2250; J3010; J3490; J7050; Q9967

== ENCOUNTER 2020-10-27 08:23 | Inpatient (IN) | payer MEDICARE, OTHER ==
[~2020-10-27] VITALS: Ht 162.6 cm; Wt 63.6 kg
[~2020-10-27 08:23] MED LIST: ARIP2TAB19 PO; ASPI-1420 PO; ATOR10TA PO; BUSP10TA35 PO; CHOL200059 PO; DIGO125T PO; ESOM40CA52 PO; FLUT1BLS IH; HYDR12.55 PO; ISOS30TA86 PO; LOSA50TA39 PO; MECL-159 PO; MEMA10TA56 PO; MONT10TA22 PO; TAMS-12 PO; TRAZ-252 PO
--- NOTE | 2020-10-27 08:30 | NUR ---
TO ER BED 6, [id number] HOME FOR WORSENING SHORTNESS OF BREATH FOR THE PAST 3 DAYS, A&OX4, BREATHING EVEN AND UNLABORED.
--- NOTE | 2020-10-27 08:30 | NUR ---
SALINE ESTABLISHED, BLOOD DRAWN AND PICKED UP BY LAB
[2020-10-27] MEDS ORDERED: APIX2.5T PO (08:56)
[2020-10-27] MEDS ORDERED: BUME0.5T5 PO (08:56)
[2020-10-27] MEDS ORDERED: LOSA1TAB36 PO (08:56)
[2020-10-27] MEDS ORDERED: CARV3.122 PO (08:57)
[2020-10-27 09:07] LABS: BASOPHILS % (AUTO) 0.5 % (0.0-2.0); EOSINOPHILS % (AUTO) 1.7 % (0.0-6.0); HEMATOCRIT 43 % (39-51); HEMOGLOBIN 14.8 g/dL (13.5-17.5); LYMPHOCYTES % (AUTO) 14.7 % (20.0-44.0); MEAN CORPUSCULAR HGB CONC 34 g/dl (31.0-36.0); MEAN CORPUSCULAR VOLUME 96 fL (80-96); MONOCYTES # (AUTO) 0.5 K/uL (0.1-1.30); MONOCYTES % (AUTO) 8.4 % (2.0-12.0); NEUTROPHILS # (AUTO) 4.8 K/uL (1.8-8.9); NEUTROPHILS % (AUTO) 74.7 % (43.0-81.0); PLATELET COUNT (AUTO) 198 K/uL (150-450); WHITE BLOOD COUNT (AUTO) 6.5 K/uL (4.3-11.0)
--- NOTE | 2020-10-27 09:12 | NUR ---
COVID SWAB DONE AND SENT TO LAB
[2020-10-27 09:24] LABS: CALCIUM, SERUM 9.6 mg/dL (8.5-10.1); CREATININE 1.1 mg/dL (0.6-1.3); POTASSIUM 3.6 mmol/L (3.5-5.1)
--- NOTE | 2020-10-27 09:28 | NUR ---
[facility] [phone]
[2020-10-27 09:37] LABS: BILIRUBIN,DIRECT 0.2 mg/dL (0.0-0.2); TOTAL PROTEIN, SERUM 7.5 g/dL (6.4-8.2)
[2020-10-27] MEDS ORDERED: methylPREDNISolone SOD SUCC 125 MG/2ML VIAL ONE (10:21)
[2020-10-27] MEDS ORDERED: IPRATROPIUM NEB FS 0.5 MG/2.5 ML AMPUL.NEB ONE (10:24)
[2020-10-27] MEDS ORDERED: ALBUTEROL FS 2.5 MG/3 ML VIAL.NEB ONE (10:24)
[2020-10-27] MEDS ORDERED: IPRATROPIUM NEB FS 0.5 MG/2.5 ML AMPUL.NEB NEB ONE (10:30)
[2020-10-27] MEDS ORDERED: methylPREDNISolone SOD SUCC 125 MG/2ML VIAL IV ONE (10:30)
[2020-10-27] MEDS ORDERED: ALBUTEROL FS 2.5 MG/3 ML VIAL.NEB CONTNEB ONE (10:30)
--- NOTE | 2020-10-27 10:39 | NUR ---
PAGED [facility].
--- NOTE | 2020-10-27 10:56 | NUR ---
CALLED NURSING SUP FOR TELE BED.
--- NOTE | 2020-10-27 11:12 | NUR ---
MALKA-DAUGHTER, , UPDATED RE PT STATUS
--- NOTE | 2020-10-27 11:28 | NUR ---
NURSING SUP GAVE TELE BED 304-2. NURSE IS JEFF.
--- NOTE | 2020-10-27 11:32 | NUR ---
REPORT GIVEN TO KAYLA AGUILAR FOR VANESSA
[2020-10-27 12:15] VITALS: BP 147/86
[2020-10-27 12:25] VITALS: BP 147/86
--- NOTE | 2020-10-27 12:30 | NUR ---
VP DIRECTOR OF CREATIVE STRATEGY ADMITTING NOTES RECEIVED PATIENT FORM E.R VIA JESSICA, ACCOMPANIED BY BRAIN GARZA AND NAIDA. PATIENT IS AWAKE, A&O X 4, ABLE TO MAKE NEEDS KNOWN. ABLE TO AMBULATE UPON TRANSFER TO BED. VITAL SIGNS TAKEN AND RECORDED. ON ROOM AIR TOLERATING WELL. NO S/SX OF ACUTE DISTRESS NOTED. HOOKED TO TELE MONITOR SHOWING SR HR AT 70'S. NO SKIN ISSUES IDENTIFIED. IV ACCESS ON RAC G#18, PATENT, INTACT AND FLUSHES WELL. SAFETY MEASURES IN PLACE: BED ON LOWEST LOCKED POSITION, SIDE RAILS UP X 2. CALL LIGHT WITHIN EASY REACH. WILL CONTINUE TO MONITOR ACCORDINGLY.
[2020-10-27] MEDS ORDERED: ACETAMINOPHEN 325 MG TABLET PO PRN (14:00)
[2020-10-27] MEDS ORDERED: BUMETANIDE INJ 0.25 MG/ML VIAL IV ONE (14:00)
[2020-10-27] MEDS ORDERED: TRAZODONE 50 MG TABLET PO PRN (14:00)
[2020-10-27] MEDS ORDERED: Z GUARD REMEDY 2 OZ OINT TP PRN (14:00)
[2020-10-27] MEDS ORDERED: ONDANSETRON HCL/PF 4 MG/2 ML VIAL IVP PRN (14:00)
[2020-10-27] MEDS: ALBUTEROL FS 2.5 MG/0.5 ML VIAL.NEB NEB SCH ×2 (15:18→20:21)
[2020-10-27] MEDS: IPRATROPIUM NEB FS 0.5 MG/2.5 ML AMPUL.NEB NEB SCH ×2 (15:19→20:21)
[2020-10-27 16:00] VITALS: BP 151/88
[2020-10-27] MEDS: CARVEDILOL 3.125 MG TABLET PO SCH (16:17)
[2020-10-27] MEDS: FLUTICASONE/VILANTEROL 1 EACH BLST.W.DEV IH SCH (16:17)
[2020-10-27] MEDS: APIXABAN 2.5 MG TABLET PO SCH (16:18)
[2020-10-27] MEDS: MONTELUKAST SODIUM (10MG) 10 MG TABLET PO SCH (17:21)
[2020-10-27] MEDS: ATORVASTATIN 10 MG TABLET PO SCH (17:21)
[2020-10-27] MEDS: TAMSULOSIN 0.4 MG CAP.SR.24H PO SCH (17:21)
--- NOTE | 2020-10-27 18:32 | NUR ---
STEAM GENERATING POWERPLANT MECHANIC CLOSING NOTES PATIENT IS AWAKE, A&O X 4, ABLE TO MAKE NEEDS KNOWN. ABLE TO AMBULATE WITH STEADY GAIT. ON ROOM AIR TOLERATING WELL. NO S/SX OF ACUTE DISTRESS NOTED. HOOKED TO TELE MONITOR SHOWING SR HR AT 70'S WITH PVC'S. IV ACCESS ON RAC G#18, PATENT, INTACT AND FLUSHES WELL. SAFETY MEASURES IN PLACE: BED ON LOWEST LOCKED POSITION, SIDE RAILS UP X 2. CALL LIGHT WITHIN EASY REACH. ALL NEEDS ATTENDED AND MET. DUE MEDS GIVEN ORDERED. WILL ENDORSE TO ONCOMING SHIFT FOR CONTINUITY OF CARE.
--- NOTE | 2020-10-27 19:00 | NUR ---
SILK SCREEN PAINTER OPENING NOTE RECEIVED PT AWAKE IN BED. A/OX4. PT STABLE ON ROOM AIR. NO SOB NOTED. NO S/S OF RESPIRATORY DISTRESS. PT IS ON EXTERNAL INSTRUCTIONAL TECHNOLOGY TEACHER SR 86 WITH TRIGEMY. NO C/O PAIN AT THIS TIME. IV ACCESS In R AC #20 SL, IV IS INTACT, PATENT, AND FLUSHING WELL. SAFETY MEASURES MAINTAINED AT ALL TIMES. BED IN LOWEST LOCKED POSITION, HOB ELEVATED, SIDE RAILS UPX2. CALL LIGHT AND TABLE WITHIN REACH. WILL CONTINUE WITH PLAN OF CARE.
[2020-10-27 20:00] VITALS: BP 119/68
[2020-10-27] MEDS: methylPREDNISolone SOD SUCC 40 MG/ML VIAL IV SCH (21:28)
[2020-10-28] VITALS: BP 131/70
--- NOTE | 2020-10-28 00:49 | NUR ---
PT C/O INABILITY TO SLEEP. TRAZODONE 50MG 1 TAB PO HS PRN FOR SLEEP ADMINISTERED AT THIS TIME. WILL CONTINUE TO MONITOR
[2020-10-28 04:00] VITALS: BP 129/66
[2020-10-28] MEDS: methylPREDNISolone SOD SUCC 40 MG/ML VIAL IV SCH ×3 (05:50→21:34)
[2020-10-28 06:13] LABS: BASOPHILS % (AUTO) 0.1 % (0.0-2.0); HEMATOCRIT 38 % (39-51); HEMOGLOBIN 12.9 g/dL (13.5-17.5); LYMPHOCYTES # (AUTO) 0.6 K/uL (0.8-4.8); LYMPHOCYTES % (AUTO) 7.6 % (20.0-44.0); MEAN CORPUSCULAR HGB CONC 34 g/dl (31.0-36.0); MEAN CORPUSCULAR VOLUME 95 fL (80-96); MONOCYTES # (AUTO) 0.5 K/uL (0.1-1.30); MONOCYTES % (AUTO) 6.2 % (2.0-12.0); NEUTROPHILS # (AUTO) 6.6 K/uL (1.8-8.9); NEUTROPHILS % (AUTO) 86.1 % (43.0-81.0); PLATELET COUNT (AUTO) 183 K/uL (150-450); RED BLOOD CELL COUNT(AUTO) 3.96 MIL/uL (4.5-6.0); WHITE BLOOD COUNT (AUTO) 7.7 K/uL (4.3-11.0)
[2020-10-28 06:23] LABS: CALCIUM, SERUM 8.3 mg/dL (8.5-10.1); CARBON DIOXIDE 26 mmol/L (21-32); CHLORIDE 106 mmol/L (98-107); CREATININE 1.1 mg/dL (0.6-1.3); GLUCOSE 164 mg/dL (74-106); PHOSPHORUS 3.5 mg/dL (2.5-4.9); POTASSIUM 3.4 mmol/L (3.5-5.1); SODIUM SERUM 140 mmol/L (136-145); UREA NITROGEN, BLOOD 31 mg/dL (7-18)
--- NOTE | 2020-10-28 06:27 | NUR ---
INSTANT POWDER SUPERVISOR CLOSING NOTE PT IS IN BED AWAKE. A/OX4. PT IS STABLE ON 2L OXYGEN VIA NC. NO SOB OR RESPIRATORY DISTRESS NOTED THROUGH SHIFT.ALL NEEDS HAVE BEEN MET. ALL CARE, NEEDS, MEDICATIONS, AND TREATMENT ADMINISTERED ANTICIPATED PER ORDER. PAIN MANAGEMENT ADMINISTERED PER ORDER. SAFETY, SEIZURE, AND ASPIRATION PRECAUTIONS MAINTAINED AT ALL TIMES. BED IN LOWEST LOCKED POSITION, HOB ELEVATED, SIDE RAILS UP X2, CALL LIGHT AND TABLE WITHIN REACH. WILL ENDORSE TO ONCOMING NURSE.
[2020-10-28] MEDS: ALBUTEROL FS 2.5 MG/0.5 ML VIAL.NEB NEB SCH ×5 (07:35→20:07)
[2020-10-28] MEDS: IPRATROPIUM NEB FS 0.5 MG/2.5 ML AMPUL.NEB NEB SCH ×5 (07:35→20:07)
[2020-10-28 07:55] LABS: CHOLESTEROL 175 mg/dL (<200); HDL CHOLESTEROL 71 mg/dL (40-60); LDL 99 mg/dL (0-99); THYROID STIMULATING HORMONE 0.361 uIU/mL (0.358-3.74); TRIGLYCERIDES 32 mg/dL (30-150)
--- NOTE | 2020-10-28 07:57 | NUR ---
GREENS KEEPER OPENING NOTES RECEIVED PATIENT IN BED, AWAKE, A/O X2 TO 3. PATIENT ON OXYGEN THERAPY AT 2 LPM VIA NASAL CANNULA; BREATHING EVEN AND UNLABORED, NO SOB NOTED AT THIS TIME. NO COMPLAINS OF PAIN. TELE MONITOR WITH A CURRENT READING OF SR WITH BIGEMINI AND TRIGEMINI AT 73 BPM. IV ACCESS OF RAC G #20; SL. SAFETY PRECAUTIONS IN PLACE; BED IN LOW POSITION AND LOCKED, RAILS UP X2, CALL LIGHT WITHIN REACH. WILL CONTINUE TO MONITOR PATIENT.
[2020-10-28 08:00] VITALS: BP 123/66
[2020-10-28 08:00] LABS: DIGOXIN < 0.20 ng/mL (0.90-2.00)
[2020-10-28] MEDS ORDERED: POTASSIUM CHLORIDE 20 MEQ TAB.PRT.SR PO ONE (08:00)
[2020-10-28] MEDS: FLUTICASONE/VILANTEROL 1 EACH BLST.W.DEV IH SCH ×2 (08:38→17:26)
[2020-10-28] MEDS: PANTOPRAZOLE 40 MG TABLET.DR PO SCH (08:39)
[2020-10-28] MEDS: ISOSORBIDE MONONITRATE (30MG) 30 MG TAB.SR.24H PO SCH (08:40)
[2020-10-28] MEDS: MEMANTINE HCL 5 MG TABLET PO SCH (08:40)
[2020-10-28] MEDS: CARVEDILOL 3.125 MG TABLET PO SCH ×2 (08:40→17:00)
[2020-10-28] MEDS: ARIPIPRAZOLE 2 MG TABLET PO SCH (08:41)
[2020-10-28] MEDS: APIXABAN 2.5 MG TABLET PO SCH ×2 (08:42→17:00)
[2020-10-28] MEDS: ASPIRIN EC 81 MG TABLET.DR PO SCH (08:42)
[2020-10-28] MEDS: LOSARTAN/HCTZ 50-12.5MG/ 1 EA TABLET PO SCH (08:44)
[2020-10-28] MEDS ORDERED: busPIRone HCL 10 MG TABLET PO SCH (09:00)
[2020-10-28 12:00] VITALS: BP 133/73
[2020-10-28] MEDS ORDERED: DIGOXIN 0.125 MG TABLET PO SCH (13:00)
[2020-10-28 16:00] VITALS: BP 134/73
[2020-10-28] MEDS: MONTELUKAST SODIUM (10MG) 10 MG TABLET PO SCH (17:15)
[2020-10-28] MEDS: TAMSULOSIN 0.4 MG CAP.SR.24H PO SCH (17:15)
[2020-10-28] MEDS: ATORVASTATIN 10 MG TABLET PO SCH (17:15)
--- NOTE | 2020-10-28 18:23 | NUR ---
TIMEKEEPER CLOSING NOTES PATIENT REMAINS IN BED, AWAKE, A/O X4. PATIENT ON OXYGEN THERAPY AT 2 LPM VIA NASAL CANNULA; BREATHING EVEN AND UNLABORED, NO SOB NOTED AT THIS TIME. NO COMPLAINS OF PAIN DURING SHIFT. TELE MONITOR WITH A CURRENT READING OF SR WITH BIGEMINI AND TRIGEMINI AT 75 BPM. IV ACCESS OF RAC G #20; SL. ALL NEEDS ATTENDED DURING THE DAY. SAFETY PRECAUTIONS IN PLACE; BED IN LOW POSITION AND LOCKED, RAILS UP X2, CALL LIGHT WITHIN REACH. WILL ENDORSE TO REVENUE CYCLE ANALYST NURSE.
--- NOTE | 2020-10-28 19:30 | NUR ---
BRAKE COUPLER ROAD FREIGHT OPENING NOTE PATIENT RESTING IN BED, ALERT/ORIENTED X 4, NO REPORTS OF PAIN AT THIS TIME. PT STABLE ON 2 LPM OF OXYGEN VIA NASAL CANNULA, NO S/S OF DISTRESS OR SOB NOTED, BREATHING EVEN AND UNLABORED. TELE MONITORING READING SINUS RHYTHM WITH BIGEMINY AND TRIGEMINY, HR: 78. RIGHT AC #20G IV ACCESS INTACT AND FLUSHING WELL. SAFETY MEASURES IN PLACE: CALL LIGHT WITHIN REACH, BED LOCKED IN LOW POSITION, SIDE RAILS UP X 2. WILL CONTINUE TO MONITOR PATIENT THROUGHOUT SHIFT
[2020-10-28 20:00] VITALS: BP 106/54
[2020-10-29] VITALS: BP 128/62
[2020-10-29 04:00] VITALS: BP 141/66
[2020-10-29] MEDS: methylPREDNISolone SOD SUCC 40 MG/ML VIAL IV SCH (05:41)
--- NOTE | 2020-10-29 06:29 | NUR ---
DEVELOPMENT CHEMIST CLOSING NOTE PATIENT SLEEPING IN BED, PT STABLE ON 2 LPM OF OXYGEN VIA NASAL CANNULA, NO S/S OF DISTRESS OR SOB NOTED, BREATHING EVEN AND UNLABORED. TELE MONITORING READING SINUS RHYTHM WITH BIGEMINY, TRIGEMINY, AND ST DEPRESSION HR: 68. RIGHT AC #20G IV ACCESS INTACT AND SALINE LOCKED. MEDICATIONS GIVEN ORDERED, PT NEEDS MET THROUGHOUT SHIFT. SAFETY MEASURES IN PLACE: CALL LIGHT WITHIN REACH, BED LOCKED IN LOW POSITION, SIDE RAILS UP X 2. WILL ENDORSE TO DAY SHIFT NURSE FOR CONTINUITY OF CARE
--- NOTE | 2020-10-29 07:25 | NUR ---
CONTRACT TECHNICIAN OPENING NOTE RECEIVED PATIENT AWAKE, PACING IN ROOM. A/O X4. ON 2L OXYGEN VIA NASAL CANNULA - TOLERATING WELL. NO SOB NOTED. NO DISTRESS/DISCOMFORT NOTED. ON EXTERNAL TELE MONITOR - READS SINUS RHYTHM WITH BIGEMINY AND TRIGEMINY, HR: 68. IV ACCESS TO RIGHT AC #20 - SALINE LOCKED. SAFETY MEASURES IN PLACE. CALL LIGHT WITHIN REACH. WILL CONTINUE TO MONITOR.
[2020-10-29] MEDS: PANTOPRAZOLE 40 MG TABLET.DR PO SCH (07:30)
[2020-10-29] MEDS: ALBUTEROL FS 2.5 MG/0.5 ML VIAL.NEB NEB SCH ×2 (07:35→11:18)
[2020-10-29] MEDS: IPRATROPIUM NEB FS 0.5 MG/2.5 ML AMPUL.NEB NEB SCH ×2 (07:35→11:18)
[2020-10-29 08:12] VITALS: BP 130/67
[2020-10-29] MEDS: CARVEDILOL 3.125 MG TABLET PO SCH (08:12)
[2020-10-29] MEDS: LOSARTAN/HCTZ 50-12.5MG/ 1 EA TABLET PO SCH (08:12)
[2020-10-29] MEDS: ARIPIPRAZOLE 2 MG TABLET PO SCH (08:12)
[2020-10-29] MEDS: ISOSORBIDE MONONITRATE (30MG) 30 MG TAB.SR.24H PO SCH (08:12)
[2020-10-29] MEDS: MEMANTINE HCL 5 MG TABLET PO SCH (08:12)
[2020-10-29] MEDS: ASPIRIN EC 81 MG TABLET.DR PO SCH (08:13)
[2020-10-29] MEDS: FLUTICASONE/VILANTEROL 1 EACH BLST.W.DEV IH SCH (08:13)
[2020-10-29] MEDS: APIXABAN 2.5 MG TABLET PO SCH (08:14)
[2020-10-29] MEDS ORDERED: busPIRone 5 MG TABLET PO SCH (09:00)
--- NOTE | 2020-10-29 11:49 | NUR ---
MS CAN DRYER NOTE PATIENT DISCHARGED VIA PRIVATE CAR @ 1145. STABLE, A/O X4. NO SOB NOTED. NO DISTRESS/DISCOMFORT NOTED AT TIME OF DISCHARGE. ALL EXITCARE AND PATIENT EDUCATION REVIEWED AND GIVEN TO PATIENT. PRESCRIPTION GIVEN TO PATIENT. IV ACCESS REMOVED. WRISTBAND REMOVED. ALL SCHEDULED MEDICATIONS GIVEN. PATIENT ACCOMPANIED TO LOBBY BY MYSELF VIA WHEELCHAIR. MD AND CHARGE NURSE AWARE OF DISCHARGE.
== END 2020-10-29 11:45 | disposition home health service (06) | DRG 190 ==
LOC: ER 08:26 → TELE 11:42
PROVIDERS: ADMIT Nurse Practitioner Acute Care; ATTEND Nurse Practitioner Acute Care
DX: J44.1 Chronic obstructive pulmonary disease with (acute) exacerbation (principal); I50.33 Acute on chronic diastolic (congestive) heart failure; D68.59 Other primary thrombophilia; I11.0 Hypertensive heart disease with heart failure; Z20.822 Contact with and (suspected) exposure to COVID-19; E78.5 Hyperlipidemia, unspecified; F03.90 Unspecified dementia, unspecified severity, without behavioral disturbance, psychotic disturbance, mood disturbance, and anxiety; J45.909 Unspecified asthma, uncomplicated; Z98.890 Other specified postprocedural states; Z79.01 Long term (current) use of anticoagulants; Z79.82 Long term (current) use of aspirin; Z79.899 Other long term (current) drug therapy; F32.9 Major depressive disorder, single episode, unspecified; I25.10 Atherosclerotic heart disease of native coronary artery without angina pectoris; I48.91 Unspecified atrial fibrillation; K21.9 Gastro-esophageal reflux disease without esophagitis; N40.0 Benign prostatic hyperplasia without lower urinary tract symptoms; F17.200 Nicotine dependence, unspecified, uncomplicated; E87.6 Hypokalemia; Z95.1 Presence of aortocoronary bypass graft; Z90.79 Acquired absence of other genital organ(s); Z79.51 Long term (current) use of inhaled steroids; T50.2X5A Adverse effect of carbonic-anhydrase inhibitors, benzothiadiazides and other diuretics, initial encounter; Y92.9 Unspecified place or not applicable; R09.02 Hypoxemia
CPT/HCPCS: 36415; 71045-TC; 80048-TC; 80061-TC; 80076-TC; 80162-TC; 83605-TC; 83880; 84100-TC; 84443-TC; 84484-TC; 85025-TC; 87040-TC; 87081-TC; 93307-TC; 94799-TC; C9803; G0378; J2920; J2930; J3490

== ENCOUNTER 2021-07-24 04:34 | Inpatient (IN) | payer MEDICARE, OTHER ==
[~2021-07-24] VITALS: Ht 167.6 cm; Wt 63.5 kg
[~2021-07-24 04:34] MED LIST changes: +APIX2.5T PO; +BUME0.5T5 PO; +CARV3.122 PO; -HYDR12.55 PO; +LOSA1TAB36 PO; -LOSA50TA39 PO; -MECL-159 PO
--- NOTE | 2021-07-24 04:40 | NUR ---
PHOEBE 102 FROM HOME FOR C/O SOB SINCE LAST NIGHT. PT A, OX4. WAS PLACED IN BED 8 ER, ON MONITOR, , RT AT BED SIDE. PT NOED W/ O2 SAT OF 89-90 % ON R/A. HAS RECEIVED BREATHING TX WITH ALBUTEROL 5 HEAD BELLHOP CAPTAIN. PT WAS PLACED ON O2 AT 3 LPM VIA NC. WILL CONTINUE TO MONITOR
--- NOTE | 2021-07-24 04:42 | NUR ---
COVID TEST COLLECTED AND SENT TO LAB
--- NOTE | 2021-07-24 04:43 | NUR ---
EMT AT BEDSIDE FOR EKG
--- NOTE | 2021-07-24 04:45 | NUR ---
LABS AND CULTURES COLLECTED AND SENT TO LAB. 20G AT PATENT AND INTACT.
[2021-07-24] MEDS ORDERED: methylPREDNISolone SOD SUCC 125 MG/2ML VIAL ONE (04:48)
[2021-07-24] MEDS ORDERED: IPRATROPIUM NEB FS 0.5 MG/2.5 ML AMPUL.NEB ONE (04:49)
[2021-07-24] MEDS ORDERED: ALBUTEROL FS 2.5 MG/0.5 ML VIAL.NEB ONE ×2 (04:49→05:14)
--- NOTE | 2021-07-24 04:52 | NUR ---
RT AT BEDSIDE
--- NOTE | 2021-07-24 04:56 | NUR ---
MRSA SWAB COLLECTED AND SENT TO LAB. PATIENT'S BELONGINGS LIST DONE.
[2021-07-24] MEDS ORDERED: IPRATROPIUM NEB FS 0.5 MG/2.5 ML AMPUL.NEB NEB ONE (05:00)
[2021-07-24] MEDS ORDERED: methylPREDNISolone SOD SUCC 125 MG/2ML VIAL IV ONE (05:00)
[2021-07-24] MEDS ORDERED: ALBUTEROL FS 2.5 MG/0.5 ML VIAL.NEB NEB ONE ×2 (05:00→05:30)
[2021-07-24 05:01] LABS: BASOPHILS % (AUTO) 0.2 % (0.0-2.0); EOSINOPHILS % (AUTO) 1.5 % (0.0-6.0); HEMATOCRIT 39 % (39-51); HEMOGLOBIN 13.3 g/dL (13.5-17.5); LYMPHOCYTES # (AUTO) 1.2 K/uL (0.8-4.8); LYMPHOCYTES % (AUTO) 16.6 % (20.0-44.0); MEAN CORPUSCULAR HGB CONC 34 g/dl (31.0-36.0); MEAN CORPUSCULAR VOLUME 92 fL (80-96); MONOCYTES # (AUTO) 0.8 K/uL (0.1-1.30); MONOCYTES % (AUTO) 11.2 % (2.0-12.0); NEUTROPHILS # (AUTO) 5.1 K/uL (1.8-8.9); NEUTROPHILS % (AUTO) 70.5 % (43.0-81.0); PLATELET COUNT (AUTO) 166 K/uL (150-450); RED BLOOD CELL COUNT(AUTO) 4.22 MIL/uL (4.5-6.0); WHITE BLOOD COUNT (AUTO) 7.2 K/uL (4.3-11.0)
[2021-07-24 05:21] LABS: CALCIUM, SERUM 8.6 mg/dL (8.5-10.1); CARBON DIOXIDE 28 mmol/L (21-32); CHLORIDE 106 mmol/L (98-107); GLUCOSE 123 mg/dL (74-106); POTASSIUM 4.2 mmol/L (3.5-5.1); SODIUM SERUM 140 mmol/L (136-145); UREA NITROGEN, BLOOD 17 mg/dL (7-18)
[2021-07-24 05:27] LABS: ALANINE AMINOTRANSFERASE 14 U/L (12-78); ALBUMIN 3.2 g/dL (3.4-5.0); ALKALINE PHOSPHATASE 67 U/L (46-116); ASPARTATE AMINOTRANSFERASE 18 U/L (15-37); BILIRUBIN,DIRECT 0.2 mg/dL (0.0-0.2); BILIRUBIN,TOTAL 0.9 mg/dL (0.2-1.0); TOTAL PROTEIN, SERUM 6.8 g/dL (6.4-8.2)
--- NOTE | 2021-07-24 05:29 | NUR ---
PANEL PAGED PER DR'S ORDER
[2021-07-24] MEDS ORDERED: CT SWABBABLE VALVE TRANS SET 1 EA INFUS.SET MC ONE (05:31)
[2021-07-24] MEDS ORDERED: IOHEXOL-350 100 ML VIAL IV ONE (05:31)
[2021-07-24] MEDS ORDERED: IV NS 0.9% 250 ML IV ONE (05:32)
--- NOTE | 2021-07-24 06:04 | NUR ---
DR FORDE ON THE PHONE WITH THE HOSPITALIST
[2021-07-24] MEDS ORDERED: ONDANSETRON HCL/PF 4 MG/2 ML VIAL IVP PRN (06:30)
[2021-07-24] MEDS ORDERED: Z GUARD REMEDY 4 OZ OINT TP PRN (06:30)
[2021-07-24] MEDS ORDERED: ACETAMINOPHEN 325 MG TABLET PO PRN (06:30)
[2021-07-24] MEDS ORDERED: MAGNESIUM HYDROXIDE 30 ML UDC PO PRN (06:30)
[2021-07-24] MEDS ORDERED: PANTOPRAZOLE 40 MG TABLET.DR PO ONE (07:32)
[2021-07-24] MEDS ORDERED: methylPREDNISolone SOD SUCC 40 MG/ML VIAL ONE (07:32)
[2021-07-24] MEDS: methylPREDNISolone SOD SUCC 40 MG/ML VIAL IV SCH ×3 (07:41→23:00)
[2021-07-24] MEDS: PANTOPRAZOLE 40 MG TABLET.DR PO SCH (07:43)
--- NOTE | 2021-07-24 10:51 | NUR ---
ROOM 311-2
[2021-07-24] MEDS ORDERED: ENOXAPARIN SODIUM 40 MG/0.4 ML DISP.SYRIN SQ SCH (11:00)
[2021-07-24] MEDS ORDERED: PIPERACILLIN /TAZOBACTAM 3.375 G in IV D5W 50 ML IV ONE (11:00)
--- NOTE | 2021-07-24 11:15 | NUR ---
REPORT GIVEN TO NURSE AYALA FOR VANESSA
[2021-07-24] MEDS ORDERED: MECL-159 PO (11:16)
[2021-07-24] MEDS ORDERED: HALO15CR2 TP (11:16)
[2021-07-24] MEDS ORDERED: FLUT1BLS6 IH (11:16)
[2021-07-24] MEDS ORDERED: NICO-676 TD (11:16)
[2021-07-24] MEDS ORDERED: BRIM5DRO3 EACHEYE (11:16)
[2021-07-24] MEDS ORDERED: ALBU18HF2 IH (11:16)
[2021-07-24] MEDS ORDERED: DORZ10DR11 EACHEYE (11:16)
[2021-07-24] MEDS ORDERED: AMIO200T5 PO (11:16)
[2021-07-24] MEDS ORDERED: METO25TA20 PO (11:16)
[2021-07-24] MEDS ORDERED: UMEC62.5 IH (11:16)
[2021-07-24] MEDS ORDERED: DOCU-141 PO (11:16)
[2021-07-24] MEDS ORDERED: PANT40TA2 PO (11:16)
[2021-07-24] MEDS ORDERED: FLUT16SP16 (11:16)
[2021-07-24] MEDS ORDERED: FOLI0.4T6 PO (11:16)
[2021-07-24] MEDS ORDERED: CYCL30DR EACHEYE (11:16)
[2021-07-24] MEDS ORDERED: AMLO-212 PO (11:16)
[2021-07-24] MEDS ORDERED: PRED5TAB48 PO (11:16)
[2021-07-24] MEDS ORDERED: ICOS1CAP PO (11:16)
[2021-07-24] MEDS ORDERED: LINA72CA PO (11:16)
[2021-07-24] MEDS ORDERED: LIDO30AD10 TP (11:16)
[2021-07-24] MEDS ORDERED: MELO-107 PO (11:16)
[2021-07-24] MEDS ORDERED: ALBUTEROL FS 2.5 MG/3 ML VIAL.NEB NEB SCH (12:00)
[2021-07-24] MEDS ORDERED: IPRATROPIUM NEB FS 0.5 MG/2.5 ML AMPUL.NEB NEB SCH (12:00)
--- NOTE | 2021-07-24 12:00 | NUR ---
THE PATIENT IS TAKEN TO ROOM 311-2 IN STABLE CONDITIONO AND PER ACLS POLICY
--- NOTE | 2021-07-24 12:05 | NUR ---
RN NOTES PATIENT ARRIVED TO UNIT AT ROOM 311-2 VIA GURNEY, ACCOMPANIED BY 2 ER NURSES. PATIENT ABLE TO AMBULATE TO BED AND TO BATHROOM.
--- NOTE | 2021-07-24 12:10 | NUR ---
RN NOTES VS TAKEN, PATIENT ATTACHED TO O2 VIA NC AT 3LPM; NO ACUTE DISTRESS NOTED. PATIENT IS A/O X2-3, PERSIAN-SPEAKING, UNDERSTANDS SOME CZECH AND ABLE TO MAKE NEEDS KNOWN.
--- NOTE | 2021-07-24 12:26 | NUR ---
RN NOTES DTR-IN-LAWKEREN, AT BEDSIDE TO SEE PATIENT.
[2021-07-24] MEDS: PIPERACILLIN /TAZOBACTAM 3.375 G in IV D5W 100 ML IV SCH (12:59)
--- NOTE | 2021-07-24 13:30 | NUR ---
RN NOTES CHEYENNE ACE ([id number]), DTR, MADE AWARE OF PATIENT'S CONDITION/PROGRESS. PATIENT CURRENTLY EATING SANDWICH AT THIS TIME AND ABLE TO DRINK APPLE JUICE. HOB ELEVATED.
[2021-07-24 14:10] VITALS: BP 153/72
[2021-07-24] MEDS ORDERED: TRAZODONE 50 MG TABLET PO PRN (16:00)
[2021-07-24] MEDS ORDERED: LIDOCAINE 5% (PATCH) 1 EA PATCH TP PRN (16:00)
[2021-07-24] MEDS ORDERED: MECLIZINE HCL 25 MG TABLET PO PRN (16:00)
[2021-07-24] MEDS ORDERED: DOCUSATE SODIUM 100 MG CAPSULE PO PRN (16:00)
[2021-07-24] MEDS ORDERED: FLUTICASONE PROPIONATE 16 GM BOTTLE NS PRN (16:00)
[2021-07-24] MEDS ORDERED: PANTOPRAZOLE 40 MG TABLET.DR PO SCH (16:00)
[2021-07-24] MEDS: BRIMONIDINE TARTRATE OPHT SOLN 5 ML BOTTLE EACHEYE SCH (16:35)
[2021-07-24] MEDS: TIMOLOL MAL/DORZOLAM HCL OPHTH 10 ML BOTTLE EACHEYE SCH (16:35)
[2021-07-24] MEDS: NICOTINE PATCH (14MG) 14 MG PATCH.TD24 TD SCH (16:36)
[2021-07-24] MEDS: MEMANTINE HCL 5 MG TABLET PO SCH (16:51)
[2021-07-24] MEDS: ARIPIPRAZOLE 2 MG TABLET PO SCH (16:51)
[2021-07-24] MEDS: CHOLECALCIFEROL 1,000 UNIT TABLET (VIT D3) PO SCH (16:51)
[2021-07-24] MEDS: BUMETANIDE (1 MG) 1 MG TABLET PO SCH (16:52)
[2021-07-24] MEDS: DIGOXIN 0.125 MG TABLET PO SCH (16:52)
[2021-07-24] MEDS: busPIRone 5 MG TABLET PO SCH (16:52)
[2021-07-24] MEDS: ATORVASTATIN 10 MG TABLET PO SCH (16:55)
[2021-07-24] MEDS: FOLIC ACID 1 MG TABLET PO SCH (16:55)
[2021-07-24] MEDS: MONTELUKAST SODIUM (10MG) 10 MG TABLET PO SCH (16:56)
[2021-07-24 17:25] VITALS: BP 140/86
--- NOTE | 2021-07-24 17:28 | NUR ---
RN NOTES PATIENT ABLE TO AMBULATE IN THE UNIT W/ FWW 500FT W/ PORTABLE O2 W/ STAND BY ASSIST. NO COMPLAINT OF SOB NOR RESPIRATORY DISTRESS. ATTACHED TO TELE MONITOR W/ READING OF SR W/ PVC AND PAC, HR IN THE MID 60'S TO LOW 70'S, NO CARDIAC DISTRESS.
[2021-07-24] MEDS: LOSARTAN/HCTZ 50-12.5MG/ 1 EA TABLET PO SCH (17:30)
[2021-07-24] MEDS: AMIODARONE HCL 200 MG TABLET PO SCH (17:30)
[2021-07-24] MEDS: ISOSORBIDE MONONITRATE (30MG) 30 MG TAB.SR.24H PO SCH (17:30)
[2021-07-24] MEDS: APIXABAN 2.5 MG TABLET PO SCH (17:31)
[2021-07-24] MEDS: ASPIRIN EC 81 MG TABLET.DR PO SCH (17:34)
[2021-07-24] MEDS: AMLODIPINE BESYLATE 5 MG TABLET PO SCH (17:35)
[2021-07-24] MEDS: METOPROLOL TARTRATE 25 MG TABLET PO SCH (17:39)
--- NOTE | 2021-07-24 18:19 | NUR ---
RN NOTES LISSETH ACER, AT BEDSIDE TO VISIT PATIENT. MADE AWARE OF PATIENT'S CONDITION AND PLAN OF CARE. 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 INFORMED DTR THAT SHE CAN SPEAK W/ STAFF IN AM IF PATIENT CAN BE DISCHARGED TOMORROW.
--- NOTE | 2021-07-24 19:20 | NUR ---
RN NOTES ENDORSED TO COFOUNDER RN FOR [facility]AN[facility].
--- NOTE | 2021-07-24 19:30 | NUR ---
TELE/RN OPENING NOTE RECEIVED PATIENT RESTING IN BED. FAMILY AT BEDSIDE. PATIENT IS ALERT AND ORIENTED X 4. ABLE TO MAKE NEEDS KNOWN. DENIES PAIN AT THIS TIME. CONTINUES ON O2 3L VIA NC WITH NO S/SX OF RESPIRATORY DISTRESS NOTED. IV ACCESS TO LEFT FOREARM #20G INTACT, PATENT AND SALINE LOCKED. PATIENT IS AMBULATORY WITH ASSIST. CALL LIGHT WITHIN REACH. ASPIRATION, FALL AND SAFETY PRECAUTIONS MAINTAINED. ALL NEEDS ATTENDED TO AT THIS TIME.
[2021-07-24 19:55] VITALS: BP 134/64
[2021-07-24] MEDS: ALBUTEROL FS 2.5 MG/3 ML VIAL.NEB NEB SCH (20:43)
[2021-07-24] MEDS: IPRATROPIUM NEB FS 0.5 MG/2.5 ML AMPUL.NEB NEB SCH (20:43)
[2021-07-24] MEDS ORDERED: TAMSULOSIN 0.4 MG CAP.SR.24H PO SCH (22:00)
[2021-07-24 23:50] VITALS: BP 125/66
[2021-07-25] MEDS: IPRATROPIUM NEB FS 0.5 MG/2.5 ML AMPUL.NEB NEB SCH ×3 (02:51→13:38)
[2021-07-25] MEDS: ALBUTEROL FS 2.5 MG/3 ML VIAL.NEB NEB SCH ×3 (02:51→13:38)
[2021-07-25] MEDS: PIPERACILLIN /TAZOBACTAM 3.375 G in IV D5W 100 ML IV SCH ×2 (02:57→10:54)
[2021-07-25 04:07] VITALS: BP 128/77
[2021-07-25] MEDS: methylPREDNISolone SOD SUCC 40 MG/ML VIAL IV SCH ×2 (05:41→08:58)
[2021-07-25 06:07] LABS: BASOPHILS % (AUTO) 0.1 % (0.0-2.0); HEMATOCRIT 36 % (39-51); HEMOGLOBIN 12.6 g/dL (13.5-17.5); LYMPHOCYTES # (AUTO) 0.2 K/uL (0.8-4.8); LYMPHOCYTES % (AUTO) 2.1 % (20.0-44.0); MEAN CORPUSCULAR HGB CONC 35 g/dl (31.0-36.0); MEAN CORPUSCULAR VOLUME 92 fL (80-96); MONOCYTES # (AUTO) 0.4 K/uL (0.1-1.30); MONOCYTES % (AUTO) 4.4 % (2.0-12.0); NEUTROPHILS # (AUTO) 9.3 K/uL (1.8-8.9); NEUTROPHILS % (AUTO) 93.4 % (43.0-81.0); PLATELET COUNT (AUTO) 185 K/uL (150-450); RED BLOOD CELL COUNT(AUTO) 3.97 MIL/uL (4.5-6.0)
--- NOTE | 2021-07-25 06:20 | NUR ---
TELE/RN CLOSING NOTE PATIENT CURRENTLY SLEEPING IN BED. FAMILY AT BEDSIDE. PATIENT IS ALERT AND ORIENTED X 4. ABLE TO MAKE NEEDS KNOWN. DENIES PAIN AT THIS TIME. CONTINUES ON O2 3L VIA NC WITH NO S/SX OF RESPIRATORY DISTRESS NOTED. IV ACCESS TO LEFT FOREARM #20G INTACT, PATENT AND SALINE LOCKED. PATIENT IS AMBULATORY WITH ASSIST. CALL LIGHT WITHIN REACH. ASPIRATION, FALL AND SAFETY PRECAUTIONS MAINTAINED. ALL NEEDS ATTENDED TO AT THIS TIME. WILL ENDORSE PLAN OF CARE TO ONCOMING SHIFT RN.
[2021-07-25 06:27] LABS: CARBON DIOXIDE 26 mmol/L (21-32); CHLORIDE 103 mmol/L (98-107); CREATININE 1.3 mg/dL (0.6-1.3); GLUCOSE 254 mg/dL (74-106); MAGNESIUM 1.9 mg/dL (1.8-2.4); PHOSPHORUS 3.1 mg/dL (2.5-4.9); POTASSIUM 4.2 mmol/L (3.5-5.1); SODIUM SERUM 139 mmol/L (136-145); UREA NITROGEN, BLOOD 21 mg/dL (7-18)
--- NOTE | 2021-07-25 07:20 | NUR ---
DOOR WORKER OPENING NOTE Patient in bed, awake. A/O x 3, able to make needs known. On O2 at 3LPM via NC, breathing evenly and unlabored. No SOB or s/s of distress noted. IV access on LFA #20 SL, intact and patent. On tele monitoring showing SR with frequent PVCs. Safety precautions in place: bed in low, locked position; siderails up x 2; call light within reach. Will continue to monitor.
[2021-07-25 08:00] VITALS: BP 115/54
[2021-07-25] MEDS: busPIRone 5 MG TABLET PO SCH (08:52)
[2021-07-25] MEDS: BUMETANIDE (1 MG) 1 MG TABLET PO SCH (08:53)
[2021-07-25] MEDS: ISOSORBIDE MONONITRATE (30MG) 30 MG TAB.SR.24H PO SCH ×2 (08:53→09:00)
[2021-07-25] MEDS: ARIPIPRAZOLE 2 MG TABLET PO SCH ×2 (08:53→09:00)
[2021-07-25] MEDS: TIMOLOL MAL/DORZOLAM HCL OPHTH 10 ML BOTTLE EACHEYE SCH (08:54)
[2021-07-25] MEDS: PANTOPRAZOLE 40 MG TABLET.DR PO SCH (08:54)
[2021-07-25] MEDS: BRIMONIDINE TARTRATE OPHT SOLN 5 ML BOTTLE EACHEYE SCH ×2 (08:54→13:40)
[2021-07-25] MEDS: DIGOXIN 0.125 MG TABLET PO SCH (08:55)
[2021-07-25] MEDS: NICOTINE PATCH (14MG) 14 MG PATCH.TD24 TD SCH ×2 (08:55→09:00)
[2021-07-25] MEDS: METOPROLOL TARTRATE 25 MG TABLET PO SCH ×2 (08:55→09:00)
[2021-07-25] MEDS: FOLIC ACID 1 MG TABLET PO SCH (08:56)
[2021-07-25] MEDS: CHOLECALCIFEROL 1,000 UNIT TABLET (VIT D3) PO SCH (08:56)
[2021-07-25] MEDS: AMLODIPINE BESYLATE 5 MG TABLET PO SCH (08:56)
[2021-07-25] MEDS: AMIODARONE HCL 200 MG TABLET PO SCH (08:56)
[2021-07-25] MEDS: MONTELUKAST SODIUM (10MG) 10 MG TABLET PO SCH (08:56)
[2021-07-25] MEDS: ASPIRIN EC 81 MG TABLET.DR PO SCH ×2 (08:57→09:00)
[2021-07-25] MEDS: ATORVASTATIN 10 MG TABLET PO SCH ×2 (08:57→09:00)
[2021-07-25] MEDS: MEMANTINE HCL 5 MG TABLET PO SCH ×2 (08:57→09:00)
[2021-07-25] MEDS: LOSARTAN/HCTZ 50-12.5MG/ 1 EA TABLET PO SCH ×2 (08:58→09:00)
[2021-07-25 09:00] VITALS: BP 115/54
[2021-07-25] MEDS ORDERED: FLUTICASONE/VILANTEROL 1 EACH BLST.W.DEV IH SCH (09:00)
[2021-07-25] MEDS: APIXABAN 2.5 MG TABLET PO SCH (09:09)
[2021-07-25] MEDS ORDERED: methylPREDNISolone SOD SUCC 40 MG/ML VIAL IV SCH (10:30)
[2021-07-25] MEDS ORDERED: LEVO500T90 PO (11:53)
[2021-07-25] MEDS ORDERED: METH4TAB17 PO (11:53)
--- NOTE | 2021-07-25 15:00 | NUR ---
DISCHARGE NOTE Received order for discharge. Patient is A/O x 3, mainly Romanian speaking. Stable on room air, breathing evenly and unlabored. No SOB or s/s of distress noted. All belongings accounted for, belonging sheet signed by daughter. Discharge instructions given to patient and daughter, Shagufta; both verbalized understanding. Patient denies any pain or discomfort at this time. IV access removed, catheter tip intact. Pressure dressing applied, no signs of bleeding noted. ID band and tele monitor removed. Exitcare folder given to stefani Eagle. Patient left in stable condition via private car with daughter.
== END 2021-07-25 15:30 | disposition home health service (06) | DRG 189 ==
LOC: ER 04:36 → TRANSITION 07:16 → TELE 12:16
PROVIDERS: ADMIT Nurse Practitioner Acute Care; ATTEND Nurse Practitioner Acute Care
DX: J96.21 Acute and chronic respiratory failure with hypoxia (principal); J69.0 Pneumonitis due to inhalation of food and vomit; C34.90 Malignant neoplasm of unspecified part of unspecified bronchus or lung; J44.0 Chronic obstructive pulmonary disease with (acute) lower respiratory infection; J44.1 Chronic obstructive pulmonary disease with (acute) exacerbation; M48.54XA Collapsed vertebra, not elsewhere classified, thoracic region, initial encounter for fracture; I50.32 Chronic diastolic (congestive) heart failure; I11.0 Hypertensive heart disease with heart failure; Z20.822 Contact with and (suspected) exposure to COVID-19; E78.5 Hyperlipidemia, unspecified; Z79.51 Long term (current) use of inhaled steroids; Z79.01 Long term (current) use of anticoagulants; Z79.899 Other long term (current) drug therapy; Z79.82 Long term (current) use of aspirin; K21.9 Gastro-esophageal reflux disease without esophagitis; Z95.1 Presence of aortocoronary bypass graft; Z99.81 Dependence on supplemental oxygen; I25.10 Atherosclerotic heart disease of native coronary artery without angina pectoris; I48.91 Unspecified atrial fibrillation; F17.200 Nicotine dependence, unspecified, uncomplicated
CPT/HCPCS: 36415; 71045-TC; 80048-TC; 80076-TC; 83605-TC; 83735-TC; 83880; 84100-TC; 84484-TC; 85025-TC; 85730-TC; 87040-TC; 87081-TC; 92526; 92611-TC; 94799-TC; C9803; G0378; J1650; J2543; J2920; J2930; J7050; J7060; Q9967